=== PATIENT | female | born 1990 | race Caucasian/White ===

== ENCOUNTER 2023-09-14 18:35 | Emergency (ER) | payer OTHER ==
[~2023-09-14] VITALS: Ht 162.6 cm; Wt 43.1 kg
[~2023-09-14 18:35] MED LIST: AMOXICILLIN500 MG PO; CEPHALEXIN500 MG PO; CIPRO500 MG PO; HYDROCODON-ACE1 EAC8 PO; IBUPROFEN200 M1 PO; NORCO 5-325 TA1 EACH PO; PYRIDIUM200 MG PO
[2023-09-14 19:23] VITALS: BP 113/92
== END 2023-09-14 19:24 | disposition home or self-care (01) ==
LOC: ED 18:35
DX: S93.402A Sprain of unspecified ligament of left ankle, initial encounter (principal); F17.200 Nicotine dependence, unspecified, uncomplicated; X50.0XXA Overexertion from strenuous movement or load, initial encounter; Z91.013 Allergy to seafood; Z91.048 Other nonmedicinal substance allergy status
CPT/HCPCS: 73610; 99283